=== PATIENT | female | born 1980 ===

== ENCOUNTER 2018-11-04 14:44 | Emergency (ER) | payer OTHER ==
[2018-11-04] MEDS ORDERED: Diphtheria,Pertussis(Acell),Tetanus Vaccine 0.5 ML Syringe IM ONE (15:20)
--- NOTE | 2018-11-04 15:26 | EDM.PDOC ---
ED HPI GENERAL MEDICAL PROBLEM - General Chief Complaint: Bite:Animal, Insect Stated Complaint: RIGHT THUMB CAT BITE Time Seen by Provider: 11/04/18 15:12 - History of Present Illness INITIAL COMMENTS - FREE TEXT/NARRATIVE: HISTORY AND PHYSICAL: History of present illness: The patient is a healthy 38-year-old female who thinks her last tetanus shot was 4 or 5 years ago and presents after being bitten and scratched by a cat that she thought was her friend's cat. According to the story there was a great cat outside the window of her friend's house and the friend's daughter said that her cat got outside. The patient approached the cat which was very friendly and interactive and then when the children started screaming and yelling the cat started scratching and bit her right index finger. She has scratches to her right forearm left elbow left lateral wrist and a small bite to the right index finger with a small scratch. The patient in the ED says she is not sure if this is her friend's cat or if it is a local neighborhood cat but he was acting normally. She has no pain at the areas and no other systemic complaints prior to these events was in her usual state of good health These events occurred at 7:30 AM Review of systems: As per history of present illness and below otherwise all systems reviewed and negative. Past medical history: As per history of present illness and as reviewed below otherwise noncontributory. Surgical history: As per history of present illness and as reviewed below otherwise noncontributory. Social history: No reported history of drug or alcohol abuse. Family history: As per history of present illness and as reviewed below otherwise noncontributory. Physical exam: General: Well-developed well-nourished female who is nontoxic and vital signs are noted by me HEENT: Atraumatic, normocephalic, negative for conjunctival pallor or scleral icterus, mucous membranes moist, throat clear, neck supple, nontender, trachea midline. Lungs: Clear to auscultation, breath sounds equal bilaterally, chest nontender. Heart: S1S2, regular rate and rhythm no overt murmurs Abdomen: Soft, nondistended, nontender. NABS. There is a small superficial scratch seen at the upper abdominal wall area which has no significant depth and no surrounding erythema Pelvis: Stable nontender. Genitourinary: Deferred. Rectal: Deferred. Extremities: Atraumatic and full range of motion of all extremities with the exception of some superficial scratches seen at the right forearm above the left elbow and at the left lateral wrist all of which are very superficial. There is a superficial scratch seen on the proximal phalanx of the dorsal aspect of the right index finger and on the palmar aspect of the right index finger at the PIP soft tissue there is a small dot-like area that the patient says is an area of puncture. There is no erythema at any of these areas and the patient can flex and extend against resistance at the index finger on the right. Neurovascular unremarkable. Neuro: Awake, alert, oriented. Cranial nerves II through XII unremarkable. Cerebellum unremarkable. Motor and sensory unremarkable throughout. Exam nonfocal. Diagnostics: Patient had already performed local wound care at home Therapeutics: Tdap I did discuss with the patient that I am offering her the rabies immunoglobulin as well as the rabies vaccine schedule as it is unclear if this cat is her friends or is a neighborhood cat. She is declining that at this time. Impression: Cat scratches to upper extremities and small superficial cat bite to right index finger Definitive disposition and diagnosis as appropriate pending reevaluation and review of above. - Related Data Allergies Allergy/AdvReac Type Severity Reaction Status Date / Time No Known Allergies Allergy Verified 11/04/18 15:11 Home Meds: Home Meds traZODone HCl [Trazodone HCl] 50 mg PO DAILY 11/04/18 [History] Past Medical History HEENT History: Reports: None Gastrointestinal History: Reports: None [employer] History: Reports: - Infectious Disease History Infectious Disease History: Reports: Chicken Pox - Past Surgical History HEENT Surgical History: Reports: Tonsillectomy GI Surgical History: Reports: Appendectomy Social & Family History - Family History Family Medical History: Noncontributory - Tobacco Use Smoking Status *Q: Never Smoker - Caffeine Use Caffeine Use: Reports: Coffee - Recreational Drug Use Recreational Drug Use: No ED ROS GENERAL - Review of Systems Review Of Systems: ROS reveals no pertinent complaints other than HPI. ED EXAM, ANIMAL BITE - Physical Exam Exam: See Below (See dictation) Course - Vital Signs Last Recorded V/S: Last Vital Signs Temp 36.4 C 11/04/18 15:07 Pulse 93 11/04/18 15:07 Resp 20 11/04/18 15:07 BP 137/72 11/04/18 15:07 Pulse Ox 96 11/04/18 15:07 - Orders/Labs/Meds Orders: Active Orders 24 hr Category Date Time Status Vaccines to be Administered [RC] PER UNIT ROUTINE Care 11/04/18 15:20 Ordered Diphth,Pertuss(Acell),Tet Vac [Adacel] Med 11/04/18 15:20 Once 0.5 ml IM .ONCE ONE Departure - Departure Time of Disposition: 15:25 Disposition: Home, Self-Care 01 Condition: Good Clinical Impression: Cat scratches to extremities Cat bite of index finger Qualifiers: Encounter type: initial encounter Qualified Code(s): S61.258A - Open bite of other finger without damage to nail, initial encounter; W55.01XA - Bitten by cat , initial encounter - Discharge Information Referrals: PCP,None [Primary Care Provider] - Additional Instructions: The following information is given to patients seen in the emergency department who are being discharged to home. This information is to outline your options for follow-up care. We provide all patients seen in our emergency department with a follow-up referral. The need for follow-up, as well as the timing and circumstances, are variable depending upon the specifics of your emergency department visit. If you don't have a primary care physician on staff, we will provide you with a referral. We always advise you to contact your personal physician following an emergency department visit to inform them of the circumstance of the visit and for follow-up with them and/or the need for any referrals to a consulting specialist. The emergency department will also refer you to a specialist when appropriate. This referral assures that you have the opportunity for followup care with a specialist. All of these measure are taken in an effort to provide you with optimal care, which includes your followup. Under all circumstances we always encourage you to contact your private physician who remains a resource for coordinating your care. When calling for followup care, please make the office aware that this follow-up is from your recent emergency room visit. If for any reason you are refused follow-up, please contact the [facility] emergency department at and ask to speak to the emergency department charge nurse. [facility] Primary care- [place] [address] Dr. Benitez Cruz [facility] [address] [facility] [address] @ [address] Arevalo & Dr Brito [facility] [address] [place] [address] @ [address] iMke [facility] [address] [facility] [address] Please continue to monitor the scratches and the puncture area of your right index finger and follow-up with a hand specialist of your choice if the symptoms worsen and/or return to the ED. Please take the antibiotics as directed to prophylax for infection. Cleanse the area as we discussed with mild soap and water and pat dry and apply bacitracin or Neosporin. Return to the ER for any complications issues or evolving symptoms - My Orders Last 24 Hours: My Active Orders 11/04/18 15:20 Vaccines to be Administered [RC] PER UNIT ROUTINE Diphth,Pertuss(Acell),Tet Vac [Adacel] 0.5 ml IM .ONCE ONE - Assessment/Plan Last 24 Hours: My Active Orders 11/04/18 15:20 Vaccines to be Administered [RC] PER UNIT ROUTINE Diphth,Pertuss(Acell),Tet Vac [Adacel] 0.5 ml IM .ONCE ONE
[2018-11-04] MEDS ORDERED: Rabies Immune Globulin PF 150 Units/ML 10 ML SDV IM ONE (15:59)
[2018-11-04] MEDS ORDERED: Rabies Vaccine (Avian) 2.5 Unit Inj Kit IM ONE (16:00)
[2018-11-04 20:32] VITALS: BP 117/75; PULSE 86
== END 2018-11-04 17:12 | disposition home or self-care (01) ==
LOC: MW.ED 14:44
DX: S61.250A Open bite of right index finger without damage to nail, initial encounter (principal); S50.811A Abrasion of right forearm, initial encounter; S60.812A Abrasion of left wrist, initial encounter; S50.312A Abrasion of left elbow, initial encounter; S30.811A Abrasion of abdominal wall, initial encounter; Z79.899 Other long term (current) drug therapy; Z23 Encounter for immunization; W55.01XA Bitten by cat, initial encounter
CPT/HCPCS: 90375; 90471; 90675; 90715; 96372; 99283

== ENCOUNTER 2021-05-16 15:11 | Emergency (ER) | payer OTHER ==
[2021-05-16] MEDS ORDERED: Sodium Chloride 0.9% 1,000 ML IV ONE (15:29)
[2021-05-16] MEDS ORDERED: LORazepam 2 MG/ML SDV IVPUSH ONE (15:29)
[2021-05-16 16:43] LABS: CORONAVIRUS COVID-19 NAA NEGATIVE (NEGATIVE); INFLUENZA A NAA POSITIVE (NEGATIVE); INFLUENZA B NAA NEGATIVE (NEGATIVE)
[2021-05-16 16:44] LABS: BLOOD UREA NITROGEN,BUN 8 mg/dL (7.0-18.0); CARBON DIOXIDE,CO2 23.5 mmol/L (21.0-32.0); CHLORIDE,CL 103 mmol/L (98-107); GLUCOSE RANDOM 158 mg/dL (74-106); POTASSIUM,K 3.5 mmol/L (3.5-5.1); SODIUM,NA 141 mmol/L (136-145)
[2021-05-16 17:20] VITALS: BP 121/73; PULSE 78
== END 2021-05-16 17:13 | disposition home or self-care (01) ==
LOC: MW.ED 15:11
DX: J10.1 Influenza due to other identified influenza virus with other respiratory manifestations (principal); Z20.822 Contact with and (suspected) exposure to COVID-19
CPT/HCPCS: 0240U; 36415; 71045; 80053; 83735; 84484; 84703; 85025; 85379; 86140; 93005; 96374; 99284; J2060; J7030